=== PATIENT | female | born 1995 | race Caucasian/White ===

== ENCOUNTER 2020-07-19 11:01 | Emergency (ER) | payer OTHER ==
[~2020-07-19] VITALS: Ht 170.2 cm; Wt 68.2 kg
[2020-07-19 11:04] VITALS: BP 121/90
[2020-07-19] MEDS ORDERED: TETanus/Pertussis (Acell)/Diphther VAC/PF (Tdap-Adult) 0.5ml syringe IMVAC ONE (12:00)
[2020-07-19] MEDS ORDERED: DOXY100C2 PO (12:42)
== END 2020-07-19 13:19 | disposition home or self-care (01) ==
LOC: ER 11:02
DX: S61.011A Laceration without foreign body of right thumb without damage to nail, initial encounter (principal); S61.232A Puncture wound without foreign body of right middle finger without damage to nail, initial encounter; S50.811A Abrasion of right forearm, initial encounter; Z88.0 Allergy status to penicillin; W54.0XXA Bitten by dog, initial encounter; Y93.89 Activity, other specified; Y92.89 Other specified places as the place of occurrence of the external cause; Y99.8 Other external cause status
CPT/HCPCS: 90471; 90715; 99283